=== PATIENT | male | born 1990 | race Caucasian/White ===

== ENCOUNTER 2018-04-06 15:27 | Emergency (ER) | payer MEDICAID ==
[~2018-04-06] VITALS: Ht 162.6 cm; Wt 59.0 kg
[2018-04-06 15:33] VITALS: BP 120/77
[2018-04-06] MEDS: ONDANSETRON 4 MG/2 ML VIAL IVP ONE (15:48)
[2018-04-06] MEDS: NACL 0.9% 1,000 ML IV ONE (16:06)
[2018-04-06] MEDS: PANTOPRAZOLE 40 MG INJ VIAL IVP ONE (16:14)
[2018-04-06 16:28] LABS: BASOPHILS % (AUTO) 0.5 % (0.0-2.0); EOSINOPHILS # (AUTO) 0.1 K/uL (0-0.4); EOSINOPHILS % (AUTO) 1.5 % (0.0-4.0); HEMATOCRIT 47.3 % (36-52); HEMOGLOBIN 16.6 g/dL (12.0-18.0); LYMPHOCYTES # (AUTO) 1.5 K/uL (2.0-11.5); LYMPHOCYTES % (AUTO) 26.4 % (20.5-51.1); MEAN CORPUSCULAR HEMOGLOBIN 33 pg (27-31); MEAN CORPUSCULAR HGB CONC 35 g/dL (33-37); MONOCYTES # (AUTO) 0.6 K/uL (0.8-1.0); MONOCYTES % (AUTO) 10.8 % (1.7-9.3); NEUTROPHILS # (AUTO) 3.5 K/uL (1.8-7.7); NEUTROPHILS % (AUTO) 60.8 % (42.2-75.2); PLATELET COUNT (AUTO) 102 K/uL (140-450); RED BLOOD CELL COUNT(AUTO) 5.04 MIL/uL (4.20-6.10); RED CELL DISTRIBUTION WIDTH 14.3 % (11.6-13.7); WHITE BLOOD COUNT (AUTO) 5.7 K/uL (4.8-10.8)
[2018-04-06 16:37] LABS: ANION GAP 13.2 (8-16); CREATININE 1.2 mg/dL (0.7-1.3); POTASSIUM 3.2 mmol/L (3.5-5.1)
[2018-04-06 16:42] LABS: PROTHROMBIN TIME 11.1 secs (10.8-13.4)
[2018-04-06 16:45] LABS: ALBUMIN 3.2 g/dL (3.4-5.0)
[2018-04-06] MEDS: MAGNESIUM OXIDE 400 MG TAB PO ONE (17:06)
[2018-04-06] MEDS: POTASSIUM CHLORIDE 10 MEQ TABER PO ONE (17:08)
[2018-04-06 17:18] VITALS: BP 114/76
== END 2018-04-06 17:18 | disposition home or self-care (01) ==
LOC: MED 15:27
DX: K29.70 Gastritis, unspecified, without bleeding (principal); R53.1 Weakness; R42 Dizziness and giddiness; Z88.1 Allergy status to other antibiotic agents
CPT/HCPCS: 36415; 71045; 80053; 83690; 84484; 85025; 85610; 85730; 86886; 86900; 86901; 93005; 96361; 96374; 96375; 99285; C9113; J2405; Q0092